=== PATIENT | male | born 1935 | race Caucasian/White ===

== ENCOUNTER 2018-04-14 16:35 | Inpatient (IN) | payer OTHER, MEDICARE ==
[~2018-04-14] VITALS: Ht 167.6 cm; Wt 74.8 kg
--- NOTE | 2018-04-14 16:56 | ED CRITICAL CARE ---
History of Present Illness General Chief Complaint: Cardiopulmonary Resuscitation Stated Complaint: CPR Source: family, EMS Exam Limitations: clinical condition Vital Signs & Intake/Output Vital Signs & Intake/Output Vital Signs Date Time Temp Pulse Resp B/P B/P Pulse O2 O2 Flow FiO2 Mean Ox Delivery Rate 04/14 1751 95.7 77 20 102/63 100 Ventilator 75% 04/14 1724 94 20 108/60 100 Ventilator 100% 04/14 1704 91 70/00 04/14 1650 100 04/14 1645 98 70/00 Allergies Coded Allergies: No Known Allergies (04/14/18) Reconcile Medications Alprazolam 0.25 MG TABLET 1 TAB PO TUESTHRSAT PRN ANXIETY (Reported) Amiodarone (Cordarone) 200 MG TAB 1 TAB PO DAILY HEART (Reported) Apixaban (Eliquis) 2.5 MG TABLET 1 TAB PO BID BLOOD THINNER (Reported) Citalopram Hydrobromide (Celexa) 20 MG TABLET 1 TAB PO DAILY MENTAL HEALTH ( Reported) Epoetin Shahab (Procrit) 20,000 UNIT/ML VIAL 0.35 ML IV TUETHRSAT DIALYSIS ( Reported) Finasteride (Proscar) 5 MG TABLET 1 TAB PO DAILY PROSTATE (Reported) Linagliptin (Tradjenta) 5 MG TABLET 1 TAB PO DAILY DM (Reported) Methyl Salicylate/Menthol (Salonpas Patch) (Unknown Strength) ADH..PATCH 1 PATCH TOP Q8H PAIN (Reported) Metoprolol Tartrate 25 MG TABLET 12.5 MG PO BID HEART/BP (Reported) Oxymetazoline HCl (Afrin) 0.05 % SPRAY 2 SPRAY BELLO BID PRN CONGESTION ( Reported) Rosuvastatin Calcium (Crestor) 20 MG TABLET 1 TAB PO QHS CHOLESTEROL ( Reported) Sennosides/Docusate Sodium (Senna S Tablet) 8.6 MG-50 MG TABLET 2 TAB PO QHS CONSTIPATION (Reported) Sodium Chloride (Saline Nasal [place]) 0.65 % SPRAY 1 SPRAY NASB Q6H PRN NASAL CONGESTION (Reported) Tamsulosin HCl (Flomax) 0.4 MG CAP.ER.24H 1 CAP PO QHS (Reported) Triage Nurses Notes Reviewed? yes HPI: Patient was released from [facility] just yesterday after a CABG and had frequently admissions for fluid overload. Patient started dialysis while in the hospital. Today he was at dialysis. Approximately 2 minutes after being hooked up to the machine the patient went to cardiac arrest. AED was applied and no shock was advised. CPR was initiated. Upon classroom teacher arrival patient was asystole. Patient received epinephrine and calcium and had return of spontaneous circulation for approximately 30 seconds before losing it again. Patient went into a PEA. Patient received 2 more doses of epinephrine. Upon arrival to the emergency department patient remained in a PEA. Patient was given another dose of epinephrine and CPR was continued. Tube placement was confirmed with auscultation. A bedside echocardiogram was performed by myself which showed good cardiac contractility and no pericardial effusion. At that point patient had a pulse. The Combitube was changed over to an ET tube by anesthesia. Past History Travel History Traveled to [place] past 21 day No Medical History Any Pertinent Medical History? see below for history Cardiovascular: CAD Renal: ESRD on HD Surgical History Surgical History: CABG Psychosocial History Tobacco Use: Cognitive Impairment Family History Hx Contributory? No Review of Systems Review of Systems Constitutional: Reports: see HPI. Physical Exam Physical Exam General Appearance: intubated, severe distress Head: atraumatic Eyes: Bilateral: other (FIXED). Neck: supple Respiratory: rhonchi (WITH BVM) Cardiovascular: regular rate/rhythm, normal peripheral pulses, SLIGHT BLEEDING FROM MIDLINE SCAR Gastrointestinal: soft Core Measures ACS in differential dx? Yes CVA/TIA Diagnosis No Sepsis Present: No Sepsis Focused Exam Completed? No Progress Differential Diagnoses I considered the following diagnoses in my evaluation of the patient: [CARDIAC ARREST WITH ROSC,AMI, POST-OP COMPLICATION] Plan of Care: Orders Procedure Date/time Status Nothing by Mouth 04/15 B Active PARTIAL THROMBOPLASTIN TIME 04/14 1828 Active PROTHROMBIN TIME 04/14 1828 Active VRE ACTIVE SURVIELLANCE 04/14 1804 Active ACTIVE SURVEILLANCE NARES 04/14 1800 Active TRC EVALUATION (GEN) 04/14 1751 Active OXYGEN SETUP (GEN) 04/14 1751 Active Pathway - chart 04/14 1751 Active House Staff 04/14 1751 Active CULTURE,URINE 04/14 1751 Active LOWER RESPIRATORY CULTURE 04/14 1751 Active BLOOD CULTURE 04/14 1751 Active Code Status 04/14 1751 Active VENTILATOR PARAMETERS 04/14 1730 Complete Patient Data 04/14 1718 Active Admit to inpatient 04/14 1709 Active VENTILATOR PARAMETERS 04/14 1650 Complete Telemetry/Tailor Helper 04/14 1648 Active TROPONIN LEVEL 04/14 1648 Complete COMPREHENSIVE METABOLIC PANEL 04/14 1648 Complete CBC WITHOUT DIFFERENTIAL 04/14 1648 Complete EKG 04/14 1636 Active ARTERIAL BLOOD GAS (GEN) 04/14 UNK Complete VTE Mechanical Prophylaxis 04/14 UNK Active Vital Signs 04/14 UNK Active Intake & Output 04/14 UNK Active Simon, Insertion/Removal/Asses 04/14 UNK Active Elevate 04/14 UNK Active Current Medications Sig/Blayne Start time Last Medication Dose Stop Time Status Admin Heparin Sodium 5,000 UNIT Q8 04/14 2200 AC (Porcine) Laboratory Tests 04/14/18 1715: pH 7.18 *L, pCO2 35, pO2 381 H, HCO3 13 L, ABG O2 Sat (Measured) 98.0, Carboxyhemoglobin 0.2 L, O2 Concentration % 100%, Respiration Rate 20, O2 Delivery Method ESPRIT VENT, Vent Mode AC, Expiratory Pressure 5, Tidal Volume 500, Phlebotomy Draw Site RIGHT RADIAL 04/14/18 1645: Anion Gap 18 H, Estimated GFR 9 L, BUN/Creatinine Ratio 4.7 L, Glucose 274 H , Calcium 10.1, Total Bilirubin 0.4, AST 69 H, ALT 43, Alkaline Phosphatase 147 H, Troponin I 0.71 *H, Total Protein 5.5 L, Albumin 2.6 L, Globulin 2.9, Albumin/Globulin Ratio 0.9 L, CBC w Diff NO MAN DIFF REQ, RBC 3.35 L, MCV 83.1 , MCH 27.4, MCHC 33.0, RDW 16.4 H, MPV 7.6, Gran % 50.7, Lymphocytes % 44.8, Monocytes % 2.1, Eosinophils % 2.2, Basophils % 0.2, Absolute Granulocytes 7.7 H, Absolute Lymphocytes 6.8 H, Absolute Monocytes 0.3, Absolute Eosinophils 0.3 , Absolute Basophils 0 Microbiology 04/14 1804 GI: Surveillance Culture - ORD 04/14 1800 UPPER RESP: Surveillance Culture - ORD 04/14 1751 URINE ROUT: Urine Culture - ORD 04/14 1751 LOWER RESP: Respiratory Culture - ORD 04/14 175 LOWER RESP: Gram Stain - ORD 04/14 175 BLOOD: Blood Culture - ORD 04/14 1751 BLOOD: Blood Culture - ORD Diagnostic Imaging: Viewed by Me: Radiology Read. Discussed w/RAD: Radiology Read. Initial ED EKG: NSR, RBBB Rhythm Strip: normal sinus rhythm Comments: CALLS HAVE BEEN PLACED TO HIS FUR FINISHER TAILOR WELL HIS CT SURGEON, AWAITING CALL BACKS Departure Departure Disposition: STILL A PATIENT Condition: Critical Clinical Impression Primary Impression: Cardiac arrest Referrals: Patient Has No Primary Care Dr Departure Forms: General Discharge Information Admission Note Spoke With: Dao Mccarty MD Documentation of Exam: Documentation of any treatments & extenuating circumstances including Concerns Regarding Discharge (functional status, medication knowledge or non-compliance, living conditions, etc.) that warrant an admission rather than observation: [ Patient to be admitted to the ICU as he is too unstable to get to [facility] at this time. Patient is currently on a levophed drip. Patient will need close monitoring.] Critical Care Note Critical Care Note Critical Care Time: mins: (120 MIN) Total CPR Time (mins): 15
[2018-04-14 17:15] LABS: ABSOLUTE BASOPHIL COUNT 0 /CUMM (0.0-0.2); ABSOLUTE EOSINOPHIL COUNT 0.3 /CUMM (0.0-0.7); ABSOLUTE GRANULOCYTE CT 7.7 /CUMM (1.4-6.5); ABSOLUTE LYMPH COUNT 6.8 /CUMM (1.2-3.4); ABSOLUTE MONOCYTE COUNT 0.3 /CUMM (0.10-0.60); BASOPHIL % 0.2 % (0.0-2.0); EOSINOPHIL % 2.2 % (0-5); GRANULOCYTE % 50.7 % (42.2-75.2); HEMATOCRIT 27.8 % (42-52); MEAN CORPUSCULAR HGB 27.4 PG (27.0-31.0); MEAN CORPUSCULAR VOLUME 83.1 FL (80.0-94.0); MEAN PLATELET VOLUME 7.6 FL (7.4-10.4); RBC DISTRIBUTION WIDTH 16.4 % (11.5-14.5); RED BLOOD CELL CT 3.35 /CUMM (4.70-6.10); WHITE BLOOD CELL COUNT 15.1 /CUMM (4.8-10.8)
[2018-04-14 17:44] LABS: PLATELET COUNT 34 /CUMM (130-400)
--- NOTE | 2018-04-14 17:47 | History & Physical ---
Marcelo ANAND,Vikas 04/14/18 8985: General Information and HPI MD Statement: I have seen and personally examined BRIAN KNOX and documented this H&P. The patient is a 82 year old M who was BIBA with ongoing CPR. Source of Information: family, EMS Exam Limitations: clinical condition, post CPR History of Present Illness: 82-year-old male with past medical history of hypertension, coronary artery disease status post CABG within a month, diastolic CHF, A. fib, peripheral vascular disease, diabetes mellitus, ESRD on hemodialysis, hyperlipidemia, depression, anxiety, subdural hematoma with craniotomy in 1989, and a recent frequent hospitalization at [facility] for bilateral pleural effusion with thoracentesis, splenic laceration after fall managed conservatively, and a metabolic encephalopathic attributed to UTI, who was at [facility] for rehab, underwent a cardiac arrest while starting hemodialysis session today and was brought in an ambulance by the EMS with CPR continuing. He received a total of just above 40 min of CPR per records and received four doses of Epinephrine then. Recent history, has been frequent hospitalizations for multiple reasons, open heart surgery within a month, a fall on ?04/02/18 resulting in splenic laceration managed conservatively, and bilateral pleural effusion status post thoracotomy with 1 L and later 2 L of fluids drained. More medical records needs to be obtained from [facility], [place]. Allergies/Medications Allergies: Coded Allergies: No Known Allergies (04/14/18) Compliance With Home Meds: GOOD Past History Travel History Traveled to [place] past 21 day No Medical History Cardiovascular: AFIB, CAD, diastolic CHF, hypertension, hyperlipidemia, PVD, CABG Renal: ESRD on HD Psychiatric: anxiety, depression Surgical History Surgical History: CABG ([address] [facility]) Past Family/Social History Psychosocial History Where do you live? [facility] ([facility]porarily after hospital [place]) Primary Language: Chilean Smoking Status: Unknown If Ever Smoked ETOH Use: denies use Illicit Drug Use: denies illicit drug use Living Will? yes (no copies at hand though) Power of Buffing And Sueding Machine Operator/HCP? yes (Eldest daughter per family) Functional Ability ADLs Unknown: dressing, eating, toileting, bathing. Ambulation: unknown IADLs Unknown: shopping, housework, finances, food prep, telephone, transportation, medication admin. Review of Systems Review of Systems Constitutional: Reports: no symptoms. EENTM: Reports: no symptoms. Cardiovascular: Reports: no symptoms. Respiratory: Reports: short of breath (as reported by pt to family ). GI: Reports: no symptoms. Genitourinary: Reports: no symptoms. Musculoskeletal: Reports: no symptoms. Skin: Reports: no symptoms. Neurological/Psychological: Reports: no symptoms. Hematologic/Endocrine: Reports: no symptoms. All Other Systems: Reviewed and Negative (per family, as pt cannot speak) Exam & Diagnostic Data Last 24 Hrs of Vital Signs/I&O Vital Signs Date Time Temp Pulse Resp B/P B/P Pulse O2 O2 Flow FiO2 Mean Ox Delivery Rate 04/14 1724 94 20 108/60 100 Ventilator 100% 04/14 1704 91 70/00 04/14 1650 100 04/14 1645 98 70/ Physical Exam General Appearance intubated Skin chest wall has median longitudinal scar from recent surgery with oozing blood and a rema of compression device Skin Temp/Moisture Exam: Cool/Dry Sepsis Skin Exam (color): Pale HEENT Atraumatic, PERRLA, EOMI, Mucous Membr. moist/pink Neck No JVD Lymphatic Cervical nl Cardiovascular Normal S1, Normal S2 Lungs ventilated breath sounds b/l Abdomen Soft, distended, slow bowel sounds Neurological cannot assess fully due to pt's condition, b/l pupillary reflex intact Extremities No Clubbing, cyanosis noted in b/l hands and feet, left hand extended position, b/l edema 1+ Vascular poor pulse all over Sepsis Peripheral Pulse Location: Radial Sepsis Peripheral Pulse Exam: Weak Sepsis Cap Refill Exam: >2 sec Last 24 Hrs of Labs/Hany: Laboratory Tests 04/14/18 1715: pH 7.18 *L, pCO2 35, pO2 381 H, HCO3 13 L, ABG O2 Sat (Measured) 98.0, Carboxyhemoglobin 0.2 L, O2 Concentration % 100%, Respiration Rate 20, O2 Delivery Method ESPRIT VENT, Vent Mode AC, Expiratory Pressure 5, Tidal Volume 500, Phlebotomy Draw Site RIGHT RADIAL 04/14/18 1645: Sodium Pending, Potassium Pending, Chloride Pending, Carbon Dioxide Pending, Anion Gap Pending, BUN Pending, Creatinine Pending, BUN/Creatinine Ratio Pending , Glucose Pending, Calcium Pending, Total Bilirubin Pending, AST Pending, ALT Pending, Alkaline Phosphatase Pending, Troponin I Pending, Total Protein Pending , Albumin Pending, Globulin Pending, Albumin/Globulin Ratio Pending, CBC w Diff NO MAN DIFF REQ, RBC 3.35 L, MCV 83.1, MCH 27.4, MCHC 33.0, RDW 16.4 H, MPV 7.6, Gran % 50.7, Lymphocytes % 44.8, Monocytes % 2.1, Eosinophils % 2.2, Basophils % 0.2, Absolute Granulocytes 7.7 H, Absolute Lymphocytes 6.8 H, Absolute Monocytes 0.3, Absolute Eosinophils 0.3, Absolute Basophils 0 Microbiology 04/14 1751 URINE ROUT: Urine Culture - ORD 04/14 1751 LOWER RESP: Respiratory Culture - ORD 04/14 1751 LOWER RESP: Gram Stain - ORD 04/14 1751 BLOOD: Blood Culture - ORD 04/14 1751 BLOOD: Blood Culture - ORD Diagnostic Data EKG Results sinus rhythm with RBBB, no ST elevation, and ST depression noted in V3-V5 CXR Results pending Other Results pending Assessment/Plan Assessment: 82-year-old male with past medical history of hypertension, coronary artery disease status post CABG within a month, diastolic CHF, A. fib, peripheral vascular disease, diabetes mellitus, ESRD on hemodialysis, hyperlipidemia, depression, anxiety, subdural hematoma with craniotomy in 1989, and a recent frequent hospitalization at [facility] for bilateral pleural effusion with thoracentesis, splenic laceration after fall managed conservatively, and a metabolic encephalopathic attributed to UTI, who was at [facility] for rehab, underwent a cardiac arrest while starting hemodialysis session today and was brought in an ambulance by the EMS with CPR continuing. He received a total of just above 40 min of CPR per records and received four doses of Epinephrine then. CT now shows no PE, no stroke or herniation, or acute abdominal features. Patient was transferred to the ICU and currently is being managed here for the following issues: RESPIRATORY #Acute respiratory failure, post cardiopulmonary arrest Patient is currently intubated, will continue that for now. #Septic shock, Bilateral pulmonary pneumonia Initially patient was covered with IV Unasyn for possible aspiration pneumonia after a cardiac resuscitation, but his CT chest showed bilateral pulmonary consolidation, suspicion for infiltration/pneumonia, thus is being covered with IV vancomycin and IV Fortaz. Regarding the criteria for sepsis, the patient presented with cardiopulmonary arrest, thus the definition probably doesn't apply here. INFECTIVE DISEASE As mentioned above for pneumonia CARDIOLOGY Patient is post cardiopulmonary arrest, and his currently on IV Levophed at 20ug /kg/min. The next pressors would be IV vasopressin, and IV Maikel-Synephrine respectively. Preoperative holding rest of patient's home cardiac medications currently. HEMATOLOGY #Leukocytosis, possibly due to pneumonia or reactionary, and is on antibiotics now #Anemia, likely chronic, related to renal condition #Thrombocytopenia, initially reported as 34, possibly false reading but no prior records at [facility] currently. Will repeat and follow up. METABOLIC #JUSTEN on CKD Initial troponin was 5.9, and the patient did not receive any hemodialysis today. If his condition allows, and if the port is working (after CPR) then we would dialyze him tomorrow. Patient had to undergo contrast study to rule out PE today and that was discussed with the patient's refining equipment operator Dr Merritt as well. ALIMENTARY No issues currently. NPO. NEPHROLOGY ESRD, will undergo dialysis tomorrow per Dr Merritt. He did receive contrast for CTA today. IV Fluids to continue. NEUROLOGY Full assessment not possible given patient's condition, but his bilateral pupils are equal and reactive to light. GOALS OF CARE Patient's power of insurance defense attorney is his eldest daughter, but is most family is around. I had an extensive conversation with the patient's POA as well as the rest of the present family members, and after explaining current situation, prognosis, including possible complications of CPR, imaging showing pneumonia, and him requiring IV pressors, the POA mention that the lesion would not have wanted another round of CPR if his conditions were to worsen. Thus the patient' s CODE STATUS was changed to DO NOT RESUSCITATE as the patient is already intubated. Also the family mentioned that she would not like to be kept connected to a ventilator without meaningful quality of life, or after his brain was done. We spoke about hypothermia protocol as well which is indicated after CPR to preserve renal function as much as possible, but is also not usually given for patient's who have DNR as the code status. The POA was well informed about the hypothermia and then decided NOT to proceed with hypothermia protocol. POA made all the decisions after consultation with rest of her family members who were also explained about the patient's condition together. More medical records needs to be obtained from [place], [place]. DVT ppx: SQ Heparin Code status: DNR, as mentioned above. Diet: NPO As Ranked By This Provider Problem List: 1. Cardiac arrest Core Measures/Misc (07/18) Acute Coronary Syndrome ACS Diagnosis: No Congestive Heart Failure Congestive Heart Failure Diagnosis No Cerebrovascular Accident CVA/TIA Diagnosis: No VTE (View Protocol) VTE Risk Factors Age>40 No Mechanical VTE Prophylaxis d/t N/A MechProphylax Ordered No VTE Pharm Prophylaxis d/t NA PharmProphylax ordered Sepsis (View protocol) Sepsis Present: Yes (by definition) If YES complete Sepsis Event Note If YES complete Sepsis Event Note Dao Mccarty MD 04/14/180: General Information and HPI Allergies/Medications Home Med list Alprazolam 0.25 MG TABLET 1 TAB PO TUESTHRSAT PRN ANXIETY (Reported) Amiodarone (Cordarone) 200 MG TAB 1 TAB PO DAILY HEART (Reported) Apixaban (Eliquis) 2.5 MG TABLET 1 TAB PO BID BLOOD THINNER (Reported) Citalopram Hydrobromide (Celexa) 20 MG TABLET 1 TAB PO DAILY MENTAL HEALTH ( Reported) Epoetin Shahab (Procrit) 20,000 UNIT/ML VIAL 0.35 ML IV TUETHRSAT DIALYSIS ( Reported) Finasteride (Proscar) 5 MG TABLET 1 TAB PO DAILY PROSTATE (Reported) Linagliptin (Tradjenta) 5 MG TABLET 1 TAB PO DAILY DM (Reported) Methyl Salicylate/Menthol (Salonpas Patch) (Unknown Strength) ADH..PATCH 1 PATCH TOP Q8H PAIN (Reported) Metoprolol Tartrate 25 MG TABLET 12.5 MG PO BID HEART/BP (Reported) Oxymetazoline HCl (Afrin) 0.05 % SPRAY 2 SPRAY BELLO BID PRN CONGESTION ( Reported) Rosuvastatin Calcium (Crestor) 20 MG TABLET 1 TAB PO QHS CHOLESTEROL ( Reported) Sennosides/Docusate Sodium (Senna S Tablet) 8.6 MG-50 MG TABLET 2 TAB PO QHS CONSTIPATION (Reported) Sodium Chloride (Saline Nasal [place]) 0.65 % SPRAY 1 SPRAY NASB Q6H PRN NASAL CONGESTION (Reported) Tamsulosin HCl (Flomax) 0.4 MG CAP.ER.24H 1 CAP PO QHS (Reported) Core Measures/Misc (07/18) Sepsis (View protocol) If YES complete Sepsis Event Note If YES complete Sepsis Event Note Attending MD Review Statement Attending Statement Attending MD Statement: examined this patient, discuss w/resident/PA/AIRCRAFT STRUCTURAL REPAIRER, agreed w/resident/PA/AIRCRAFT STRUCTURAL REPAIRER, discussed with family, reviewed EMR data (avail), discussed with nursing, discussed with case mgmt, reviewed images, amended to note Attending Assessment/Plan: Impression 82 year old man * s/p cardiac arrest - asystole, then PEA Plan Respiratory -mechanical ventilation -monitor abgs, cxrs -check CTA ID -monitor for now -watch wbc, fevers CVS -cardiology consultation -f/u troponins -ECHO -alert ct surgeon at [facility] of admission given recent surgery Heme -monitor coags, cbcs Metabolic -ins/outs -creatinine -electrolytes Alimentary -NPO Neuro -ct head DVT prophylaxis at all times TTS 70 min
[2018-04-14] MEDS ORDERED: CELEXA20 M1 PO (17:57)
[2018-04-14] MEDS ORDERED: AMIODARONE HCL200 M1 PO (17:57)
--- NOTE | 2018-04-14 17:57 | RADIOLOGY REPORT ---
EXAMINATION: XR PORTABLE CHEST CLINICAL INFORMATION: Evaluate status post cardiac arrest. COMPARISON: No relevant prior imaging. TECHNIQUE: Portable frontal view of the chest was obtained. FINDINGS: The tip of the endotracheal tube is located 2.8 cm above the angella. Enteric tube extends below diaphragm. The tip of a right internal jugular vein catheter is located within the right atrium. Superficial cardiac leads overlie the chest. There is mild interstitial edema. No overt airspace disease. Trace effusions. The cardiac silhouette and upper mediastinal contours are unremarkable. No acute osseous finding. Chronic changes of a median sternotomy are noted. IMPRESSION: Mild interstitial pulmonary edema and trace effusions. No overt airspace disease. The tip of the endotracheal tube terminates 2.8 cm above the angella.
[2018-04-14] MEDS ORDERED: SENNA S TABLET1 EACH PO (17:58)
[2018-04-14] MEDS ORDERED: ELIQUIS2.5 M1 PO (17:58)
[2018-04-14] MEDS ORDERED: PROSCAR5 M1 PO (17:58)
[2018-04-14] MEDS ORDERED: SALONPAS PATCH1 EAC1 TOP (17:59)
[2018-04-14] MEDS ORDERED: TRADJENTA5 M1 PO (17:59)
[2018-04-14] MEDS ORDERED: CRESTOR20 M2 PO (17:59)
[2018-04-14] MEDS ORDERED: FLOMAX0.4 M1 PO (17:59)
[2018-04-14] MEDS ORDERED: AFRIN30 ML NAS (18:00)
[2018-04-14] MEDS ORDERED: METOPROLOL TART25 M1 PO (18:00)
[2018-04-14] MEDS ORDERED: SALINE NASAL SP30 ML NASB (18:01)
[2018-04-14] MEDS ORDERED: ALPRAZOLAM0.25 M1 PO (18:01)
[2018-04-14] MEDS ORDERED: PROCRIT20000 UNIT IV (18:02)
--- NOTE | 2018-04-14 18:11 | Admission Certification ---
Admission Certification Certification Statement - As attending physician, I certify that at the time of - admission, based on clinical presentation, severity of - symptoms, need for further diagnostic testing and - therapeutic interventions, and risk of adverse outcomes - without in-hospital treatment, in my clinical assessment, - this patient requires an acute hospital stay for a minimum - of two nights or longer. I have also considered psychsocial - factors such as support system, advanced age, financial - issues, cognitive issues, and failed out-patient treatments, - past re-admission history, safety of patient, and lack of - compliance as applicable. Specific rationale supporting this admission is: s/p cardiac arrest - asystole, then PEA intubated ICU admission
--- NOTE | 2018-04-14 21:13 | Proc Note Internal Medicine ---
Medicine Procedure Procedure Date: 04/14/18 Medical Procedure(s): central venous cath place (Rt femoral vein) Pre-Operative Diagnosis: Post cardiopulmonary arrest, requiring IV access for IV pressors Post-Operative Diagnosis: Same as above Estimated Blood Loss: less than 50ml Anesthesia: local anesthesia Procedure Findings: Under all aseptic conditions, right femoral central line was placed successfully. All three lumen were check for flow pre- and post-procedure as well.
--- NOTE | 2018-04-14 21:37 | CT SCAN REPORT ---
EXAMINATION: CT HEAD WITHOUT CONTRAST CLINICAL INFORMATION: 82-year-old male with the decerebrate posturing. COMPARISON: None TECHNIQUE: Contiguous axial imaging was performed from the skull base to vertex without intravenous administration of contrast. DLP: 622 mGy-cm FINDINGS: No intracranial hemorrhage, extra-axial fluid collection, mass or midline shift. Mild atrophy of cerebral hemispheres with symmetric prominence of sulci. The enlargement of the lateral and third ventricles appears to be out of proportion to the cerebral volume loss; this suggests possibility of normal pressure hydrocephalus or chronic, partial aqueductal stenosis. The shaffer-white matter differentiation is well preserved. No acute findings within the posterior fossa. Atherosclerotic calcification of cavernous carotid arteries. Bilateral frontal craniotomy defects are noted. The visualized paranasal sinuses, mastoid air cells and middle ear cavities are well aerated. Lens has been extracted from the right globe. No acute intraorbital pathology. The temporomandibular joints are normal. IMPRESSION: 1. No evidence of intracranial hemorrhage or acute infarction. 2. Mild atrophy of cerebral hemispheres. The prominence of the lateral and third ventricles appears to be out of proportion to the cerebral volume loss; this suggests possibility of normal pressure hydrocephalus.
--- NOTE | 2018-04-14 21:49 | CT SCAN REPORT ---
EXAMINATION: CTA CHEST, ABDOMEN AND PELVIS CLINICAL INFORMATION: Post cardiac arrest. COMPARISON: Chest portable 04/14/2018. TECHNIQUE: Following intravenous administration of 100 mL Optiray 320, 5 mm thin axial CTA chest, followed by phone within axial images of abdomen pelvis were obtained. DLP [id number] FINDINGS: CHEST: There is bilateral small to moderate pleural effusions with underlying bilateral lower lobe dense consolidation/infiltrates. In addition there is patchy airspace opacification right upper lobe and right middle lobe. Question multiple lung nodules versus infiltrates. The left upper lung is clear. There is good opacification of pulmonary artery and its branches without any intraluminal filling defect or narrowing. The thoracic aorta is of normal caliber without aneurysm or dissection. There are postsurgical susan in the anterior mediastinum likely from previous CABG. Heart size is borderline enlarged. A small pericardial effusion is seen. The endotracheal tube is approximately centimeters above the angella. A right central catheter tip is in right atrium. Nasogastric tube tip is in stomach. The axilla and the chest wall appears unremarkable. There are median sternotomy sutures and mediastinal susan from previous CABG. ABDOMEN AND PELVIS: Visualized liver, pancreas and bilateral adrenal glands unremarkable. The spleen is normal size. There is a hypodense area along the tip of the spleen likely small infarct The gallbladder has been surgically removed. Both kidneys are normal size, shape and position. No evidence of radiopaque calculi or hydronephrosis. There is a nasogastric tube tip in the stomach. The stomach is nondistended. The small bowel loops are unremarkable. There is scattered minimal stool and fluid seen in the colon without distention. There is no free fluid of free air. A Simon's catheter is seen in the bladder. The prostate gland is mildly enlarged. There is no free fluid. Bone windows reveal no lytic or sclerotic process. There is mild degenerative vacuum disc phenomena L3-L4, L4-L5 and L5/S1 disc levels. IMPRESSION: No evidence of PE. No evidence of aortic dissection or aneurysm. Bilateral small pleural effusions with large bilateral lower lobe consolidations. In addition there are patchy ill-defined opacities in the right lung question infiltrate versus pulmonary nodules. Suspect infarct the tip of spleen. Differential 9 is includes hemangioma or splenic contusion. No perisplenic or perihepatic hematoma seen. A follow-up ultrasound or CT can be performed Right central catheter, endotracheal tube, nasogastric tube and Simon's catheter are in satisfactory position.
[2018-04-14 22:00] VITALS: BP 86/00
[2018-04-14 22:55] LABS: ABSOLUTE BASOPHIL COUNT 0 /CUMM (0.0-0.2); ABSOLUTE EOSINOPHIL COUNT 0.1 /CUMM (0.0-0.7); ABSOLUTE GRANULOCYTE CT 20.5 /CUMM (1.4-6.5); ABSOLUTE LYMPH COUNT 1.2 /CUMM (1.2-3.4); ABSOLUTE MONOCYTE COUNT 1.5 /CUMM (0.10-0.60); BASOPHIL % 0.2 % (0.0-2.0); EOSINOPHIL % 0.3 % (0-5); HEMATOCRIT 25.9 % (42-52); MEAN CORPUSCULAR HGB 26.8 PG (27.0-31.0); MEAN CORPUSCULAR HGB CONC 32.5 G/DL (33.0-37.0); MEAN CORPUSCULAR VOLUME 82.3 FL (80.0-94.0); MEAN PLATELET VOLUME 6.5 FL (7.4-10.4); RBC DISTRIBUTION WIDTH 16.4 % (11.5-14.5); RED BLOOD CELL CT 3.15 /CUMM (4.70-6.10)
[2018-04-14 23:00] LABS: GRANULOCYTE % 87.9 % (42.2-75.2)
[2018-04-14 23:01] LABS: PLATELET COUNT 103 /CUMM (130-400); WHITE BLOOD CELL COUNT 23.4 /CUMM (4.8-10.8)
[2018-04-14 23:05] LABS: PT 19.4 SEC (9.4-12.5); PTT 29 SEC (25-37)
--- NOTE | 2018-04-15 00:12 | Sepsis Event Note ---
Sepsis Event Note Severe Sepsis Severe Sepsis Present: Yes Septic Shock Septic Shock Present: Yes Event Note Event Note: Patient on presentation had some current pulmonary arrest and was undergoing CPR , thus tachycardia/hypopnea or hyperthermia/tachypnea does not apply here. He had leukocytosis, and later a CAT scan of the chest showed bilateral consolidation, in the last perspective by antibiotics were started to cover not only for aspiration which was likely, but to cover for other resistant organisms that can cause pneumonia. He also has a recent h/o b/l pleural effusion. No other obvious source of infection noted. Lactic acid test added on. Sepsis Focused Exam Sepsis Cardiac Exam: Bradycardia Sepsis Resp Exam: decreased breath sound Sepsis Cap Refill Exam: >2 sec (all over) Sepsis Peripheral Pulse Exam: Weak Sepsis Peripheral Pulse Location: Radial Sepsis Skin Exam (color): Cyanotic, Pale Skin Temp/Moisture Exam: Cool/Dry
[2018-04-15 03:29] LABS: ABSOLUTE BASOPHIL COUNT 0 /CUMM (0.0-0.2); ABSOLUTE EOSINOPHIL COUNT 0 /CUMM (0.0-0.7); ABSOLUTE GRANULOCYTE CT 18.4 /CUMM (1.4-6.5); ABSOLUTE LYMPH COUNT 0.8 /CUMM (1.2-3.4); ABSOLUTE MONOCYTE COUNT 0.8 /CUMM (0.10-0.60); BASOPHIL % 0 % (0.0-2.0); EOSINOPHIL % 0 % (0-5); GRANULOCYTE % 91.9 % (42.2-75.2); HEMATOCRIT 23.9 % (42-52); MEAN CORPUSCULAR HGB 27.3 PG (27.0-31.0); MEAN CORPUSCULAR HGB CONC 33.4 G/DL (33.0-37.0); MEAN CORPUSCULAR VOLUME 81.7 FL (80.0-94.0); PLATELET COUNT 91 /CUMM (130-400); RBC DISTRIBUTION WIDTH 16.3 % (11.5-14.5); RED BLOOD CELL CT 2.92 /CUMM (4.70-6.10)
[2018-04-15 08:00] VITALS: BP 102/50
--- NOTE | 2018-04-15 10:01 | PN- Resident CRCU ---
Nava Vieyra MD 04/15/18 1001: Subjective HPI/CRCU Issues: Patient is seen and examined at the bedside. He is on the ventilator, his eyes were up ruling, pupillary reflex was intact, on the painful stimulation he was decerebrating. He had an episode of twitching movement of the face and the eyes ? Seizures He had a family meeting that we described the prognosis and mortality. Family is aware that the prognosis very poor. 24 Hour Events: Vital signs -temperature 100.8, pulse 87, first-degree atrioventricular block, respiratory 29, blood pressure 127/61 blood pressure support, ventilator-assist control/respiratory 20, tidal volume 500, FiO2 35, PEEP 5, SPO2 100%. Objective Vital Signs & I&O Last 8 Hrs of Vitals and I&O: Intake & Output 04/15 1600 Intake Total 663 Output Total 102 Balance 561 Intake, IV 663 Output, 100 Gastric Drainage Output, Urine 2 Patient 74.843 kg Weight Exam General Appearance: no apparent distress, intubated Respiratory: lungs clear Cardiovascular: regular rate/rhythm, chest there is central scar, bleeding. There was a dialysis port in right upper part of chest. Gastrointestinal: soft, non-tender Extremities: normal inspection, bilateral lower extremeties were cold Cranial Nerves: On Neurological exam - Patient was having decerebrate posturing, Seizures, right sided twitching of eyes, and face, pupils were round and reactive. Impression/Plan Impression/Problem List Impression: 82-year-old male with past medical history of hypertension, coronary artery disease status post CABG within a month, diastolic CHF, A. fib, peripheral vascular disease, diabetes mellitus, ESRD on hemodialysis, hyperlipidemia, depression, anxiety, subdural hematoma with craniotomy in 1989, and a recent frequent hospitalization at [facility] for bilateral pleural effusion with thoracentesis, splenic laceration after fall managed conservatively, and a metabolic encephalopathic attributed to UTI, who was at [facility] for rehab, underwent a cardiac arrest while starting hemodialysis session today and was brought in an ambulance by the EMS with CPR continuing. He received a total of just above 40 min of CPR per records and received four doses of Epinephrine then. Assessment and plan - Overnight patient was on ventilator and currently off the pressor support. He was decerebrating in between and had an episode of seizure. It seems that he had severe hypoxic encephalopathy. He updated the family and had a discussion regarding goals of care, prognosis and mortality. There is still in the process of discussion and deciding within the family member. Plan - Acute hypoxic encephalopathy secondary to cardiopulmonary resuscitation, hypotension complicated by focal seizures - * We placed neurologic consult * We will follow echocardiogram, EEG * Neuro check every 4 * Continue ventilator * Update the family about events * Strict intake output charting Status post bypass and CPR * Discussed with the stenotypist Clifton Rai MD advised for echocardiogram Chronic kidney disease on dialysis * Family refused further dialysis. * Dr. Goodwin had discussion with the family, he does not want any active intervention including dialysis. Code Status - DNR/DNI Diet - NPO DVT Prophylaxis - ALPS Later family decided that they will go for comfort care. Will change the CODE STATUS to comfort care and extubated patient. Patient is under comfort measures. Problem List: 1. Cardiac arrest Pain Ratin Tomorrow's Labs & Rationales: n/a Plan DVT/Prophylaxis: dannielle Mccarty MD,Dao 04/15/18 1004: Objective Current Medications: Current Medications Sig/Blayne Start time Last Medication Dose Route Stop Time Status Admin Acetaminophen 500 MG Q6-PRN PRN 04/15 1430 DC 04/15 IV 1421 Ceftazidime 1,000 MG Q24H 04/15 0000 DC 04/15 IV 0025 Glycopyrrolate 200 MCG Q2 PRN 04/15 1815 DCD 04/15 IV 1827 Heparin Sodium 5,000 UNIT Q8 04/14 2200 DC (Porcine) SC Levetiracetam 500 MG Q24 04/16 0900 CAN N/A 1 UNIT IV Levetiracetam 1,000 MG STAT STA 04/15 1129 DC 04/15 N/A 1 UNIT IV 04/15 1143 1211 Lorazepam 2 MG Q2 HRS NEEDED PRN 04/15 1730 DCD 04/15 IV 1729 Morphine Sulfate See Dose .[Q 20 MIN] PRN 04/15 1915 DCD Insts (1) IV Morphine Sulfate 4 MG .[Q 20 MIN] PRN 15 1845 DC 04/15 IV 1857 Morphine Sulfate 4 MG .[Q 20 MIN] PRN 04/15 1830 DC / IV 1838 Morphine Sulfate 4 MG ONCE ONE 04/15 1815 DC 04/15 IV 04/15 1816 1815 Morphine Sulfate 4 MG ONCE ONE 04/15 1745 DC / IV 04/15 1746 1743 Morphine Sulfate 4 MG ONCE ONE 04/15 1730 DC 04/15 IV 04/15 1731 1723 Morphine Sulfate 100 MG Q24H 04/15 1630 CAN N/A 1 UNIT IV Morphine Sulfate 90 MG Q24H 04/15 1630 DCD /15 N/A 1 UNIT IV 1735 Morphine Sulfate 6 MG ONCE ONE 04/15 1600 DC / IV 04/15 1601 1608 Morphine Sulfate 100 MG Q24H 04/15 1600 DC Dextrose/Water 100 ML IV Norepinephrine 4 MG Q3H 04/15 0045 DC 04/15 Dextrose/Water 250 ML IV 0115 Pantoprazole Sodium 40 MG DAILY 04/14 2345 DC 04/15 IV 0843 Scopolamine HBr 1 PAT Q72H 04/15 1830 DCD TOP Sodium Chloride 1,000 ML Q10H 04/15 0115 DC 04/15 IV 1531 Dose Instructions: (1)Morphine Sulfate: DOSE PER DRIP PROTOCOL Attending MD Review Statement Attending Sign Off Attending Cosign Statement: I have: examined this patient, reviewed al EMR data, personally reviewd images, discussd w/resident/PA/[employer] BASKET MAKER, discussed mgmt plan w/gerald, discussed mgmt plan w/CM, discussed mgmt plan w/pt, agreed w/resident/PA/WIRE BASKET MAKER, amended to note. Other Findings: Impression 82 year old man * s/p cardiac arrest - asystole, then PEA Plan Respiratory -mechanical ventilation -monitor abgs, cxrs ID -broad spectrum abx -watch wbc, fevers CVS -cardiology consultation -f/u troponins -ECHO -discussed with [employer] for ct surgeon at [facility] of admission given recent surgery Heme -monitor coags, cbcs Metabolic -ins/outs -creatinine -electrolytes Alimentary -NPO Neuro -EEG -neurology consultation DVT prophylaxis at all times TTS 40 min DNR/DNI d/w family very poor prognosis
--- NOTE | 2018-04-15 10:50 | Cons- Cardiology ---
General Information and HPI Consulting Request Date of Consult: 04/15/18 Requested By: Dao Mccarty MD Reason for Consult: Cardiopulmonary arrest Source of Information: family, old records, EMS History of Present Illness: The patient was intubated at the time of this consultation and the majority of the HPI is obtained from the medical record and discussions with his other physicians. This is an 82-year-old male with a past medical history of coronary artery disease with recent three-vessel CABG (BANKS, SVGx2) at [facility], end -stage renal disease on dialysis, diastolic CHF, recently diagnosed atrial fibrillation now on Eliquis, hypertension, hyperlipidemia, and diabetes mellitus. Patient was recently discharged from [facility] and was undergoing outpatient dialysis when per report he lost consciousness and was found to be pulseless. He did undergo CPR and received out of hospital epinephrine with eventual return of spontaneous regulation. He was transiently on pressors which were subsequently discontinued as his blood pressure improved. While he had had recurrent hospitalizations per reports he had not been complaining of worsening shortness of breath, chest pain, subjective fever, or worsening cough. Allergies/Medications Allergies: Coded Allergies: No Known Allergies (04/14/18) Home Med List: Alprazolam 0.25 MG TABLET 1 TAB PO TUESTHRSAT PRN ANXIETY (Reported) Amiodarone (Cordarone) 200 MG TAB 1 TAB PO DAILY HEART (Reported) Apixaban (Eliquis) 2.5 MG TABLET 1 TAB PO BID BLOOD THINNER (Reported) Citalopram Hydrobromide (Celexa) 20 MG TABLET 1 TAB PO DAILY MENTAL HEALTH ( Reported) Epoetin Shahab (Procrit) 20,000 UNIT/ML VIAL 0.35 ML IV TUETHRSAT DIALYSIS ( Reported) Finasteride (Proscar) 5 MG TABLET 1 TAB PO DAILY PROSTATE (Reported) Linagliptin (Tradjenta) 5 MG TABLET 1 TAB PO DAILY DM (Reported) Methyl Salicylate/Menthol (Salonpas Patch) (Unknown Strength) ADH..PATCH 1 PATCH TOP Q8H PAIN (Reported) Metoprolol Tartrate 25 MG TABLET 12.5 MG PO BID HEART/BP (Reported) Oxymetazoline HCl (Afrin) 0.05 % SPRAY 2 SPRAY BELLO BID PRN CONGESTION ( Reported) Rosuvastatin Calcium (Crestor) 20 MG TABLET 1 TAB PO QHS CHOLESTEROL ( Reported) Sennosides/Docusate Sodium (Senna S Tablet) 8.6 MG-50 MG TABLET 2 TAB PO QHS CONSTIPATION (Reported) Sodium Chloride (Saline Nasal Allen) 0.65 % SPRAY 1 SPRAY NASB Q6H PRN NASAL CONGESTION (Reported) Tamsulosin HCl (Flomax) 0.4 MG CAP.ER.24H 1 CAP PO QHS (Reported) Current Medications: Current Medications Sig/Blayne Start time Last Medication Dose Route Stop Time Status Admin Acetaminophen 1,000 MG ONCE ONE 04/15 0630 DC 04/15 N/A 1 UNIT IV 04/15 0644 0623 Ampicillin Sodium/ 3,000 MG Q24H 04/14 2200 DC 04/14 Sulbactam Sodium IV 2230 Sodium Chloride 100 ML Ceftazidime 1,000 MG Q24H 04/15 0000 AC 04/15 IV 0025 Epinephrine 1 MG ONCE ONE 04/14 1700 DC 04/14 IV 04/14 1701 1633 Fentanyl Citrate 50 MCG ONCE ONE 04/15 0615 DC 04/15 IV 04/15 0616 0623 Heparin Sodium 5,000 UNIT Q8 04/14 2200 AC (Porcine) SC Norepinephrine 4 MG Q3H 04/15 0045 AC 04/15 Dextrose/Water 250 ML IV 0115 Norepinephrine 4 MG Q24H 04/14 2300 DC 04/14 Dextrose/Water 250 ML IV 04/15 0044 2301 Norepinephrine 4 MG .STK-MED ONE 04/14 2134 DC IV 04/14 2135 Norepinephrine 4 MG ONCE ONE 04/14 1700 DC 04/14 Sodium Chloride 250 ML IV 04/14 1701 1645 Norepinephrine 0 .STK-MED ONE 04/14 1643 DC IV Pantoprazole Sodium 40 MG DAILY 04/14 2345 AC 04/15 IV 0843 Sodium Chloride 1,000 ML Q10H 04/15 0115 AC 04/15 IV 0117 Vancomycin HCl 1,000 MG ONCE ONE 04/14 2315 DC 04/15 Sodium Chloride 250 ML IV 04/15 0014 0025 Vasopressin 40 UNITS .STK-MED ONE 04/14 2211 DC IM 04/14 2212 Review of Systems Review of Systems: Unable to obtain as the patient is currently intubated Past History Travel History Traveled to [place] past 21 day No Medical History Blood Transfusion Hx: Yes EENT: NONE Cardiovascular: AFIB, CAD, diastolic CHF, hypertension, hyperlipidemia, PVD, CABG Respiratory: NONE Gastrointestinal: NONE Hepatic: NONE Renal: ESRD on HD Musculoskeletal: NONE Psychiatric: anxiety, depression Endocrine: diabetes Blood Disorders: NONE Cancer(s): NONE INTEGRITY ENGINEER/Reproductive: NONE Surgical History Surgical History: CABG (2 WEEKS AGO AT [facility]) Psychosocial History [facility] You [facility] ([facility] after hospital DC) Services at Home: Nursing, Physical Therapy Primary Language: Chinese Smoking Status: Unknown If Ever Smoked ETOH Use: denies use Illicit Drug Use: denies illicit drug use Living Will? yes (no copies at hand though) Power of Dragline Engineer/HCP? yes (Eldest daughter per family) Functional Ability ADLs Unknown: dressing, eating, toileting, bathing. Ambulation: unknown IADLs Unknown: shopping, housework, finances, food prep, telephone, transportation, medication admin. Exam & Diagnostic Data Vital Signs and I&O Vital Signs Date Time Temp Pulse Resp B/P B/P Pulse O2 O2 Flow FiO2 Mean Ox Delivery Rate 04/15 0922 40 04/15 0800 99.9 78 22 102/50 100 Ventilator 60% 04/15 0800 100 Ventilator 60% 04/15 0752 100.0 04/15 0623 100.4 04/15 0600 60 04/15 0556 65 04/15 0400 100 Ventilator 65% 04/15 0324 65 04/15 0320 70 04/15 0115 84 113/56 04/15 0034 70 04/15 0026 75 04/15 0000 100 Ventilator 75% 04/14 2301 85 85/60 04/14 2230 75 04/14 2200 94.2 80 20 86/00 100 Ventilator 75% 04/14 2115 95 Ventilator 75% 04/14 2014 89.8 83 20 128/93 98 04/14 1941 85 20 122/67 99 Ventilator 04/14 1751 95.7 77 20 102/63 100 Ventilator 75% 04/14 1724 94 20 108/60 100 Ventilator 100% 04/14 1704 91 70/00 04/14 1650 100 04/14 1645 98 70/00 Intake & Output 04/15 1600 04/15 0800 04/15 0000 04/14 1600 04/14 0800 04/14 0000 Intake Total 1227 270 Output Total 210 150 Balance 1017 120 Intake, IV 1227 270 Output, 200 Gastric Drainage Output, Urine 10 150 Patient 165 lb 165 lb Weight Weight Bed scale Measurement Method Physical Exam: General: Intubated Eyes: No obvious scleral icterus. HEENT: No jugular venous distention or abnormal jugular venous pulsations. Cardiovascular: Normal intensity S1/S2. Regular Respiratory: Decreased air entry at the bases Abdomen: Soft, nontender with no guarding or rebound tenderness. Musculoskeletal: No clubbing or cyanosis noted; no edema Skin: warm Neurologic: Intubated Lymph: No gross lymphadenopathy. Labs/Hany Results: Laboratory Tests 04/15 04/15 04/15 04/15 04/15 0805 0800 0515 0515 0240 Blood Gas pH (7.35 - 7.45 PH) 7.42 pCO2 (35 - 45 TORR) 27 L pO2 (80 - 100 TORR) 208 H HCO3 (21 - 28 MEQ/L) 17 L ABG O2 Sat (Measured) (>96.0 %) 98.0 P-50 (Temp Corrected) N Carboxyhemoglobin (1.5 - 5.0 %) 0.4 L O2 Concentration % 60% Temperature (97.0 - 100.0 FARH) 99.9 Respiration Rate (BPM) 20 O2 Delivery Method VENT Vent Mode VC-AC Expiratory Pressure (CMH2O/P) 5 Tidal Volume (CC) 500 Chemistry Lactic Acid (0.7 - 2.1 mmol/L) 2.8 H 3.7 H 4.7 H Troponin I (<0.11 ng/ml) 1.18 *H Miscellaneous Phlebotomy Draw Site RIGHT RADIAL 04/15 04/14 0240 2205 Chemistry Sodium (137 - 145 mmol/L) 136 L 136 L Potassium (3.5 - 5.1 mmol/L) 5.1 5.1 Chloride (98 - 107 mmol/L) 102 102 Carbon Dioxide (22 - 30 mmol/L) 17 L 20 L Anion Gap (5 - 16) 17 H 14 BUN (9 - 20 mg/dL) 33 H 31 H Creatinine (0.7 - 1.2 mg/dL) 5.6 *H 5.9 *H Estimated GFR (>60 ml/min) 10 L 9 L Glucose (65 - 99 mg/dL) 223 H 215 H Calcium (8.4 - 10.2 mg/dL) 7.8 L 8.3 L Phosphorus (2.5 - 4.5 mg/dL) 5.9 H 6.1 H Magnesium (1.6 - 2.3 mg/dL) 1.5 L 1.7 Total Bilirubin (0.2 - 1.3 mg/dL) 0.5 0.5 AST (17 - 59 U/L) 74 H 86 H ALT (21 - 72 U/L) 45 42 Troponin I (<0.11 ng/ml) 1.11 *H Albumin (3.5 - 5.0 g/dL) 2.3 L 2.3 L Coagulation PT (9.4 - 12.5 SEC) 19.4 H INR (0.90 - 1.17) 1.77 H APTT (25 - 37 SEC) 29 Hematology CBC w Diff MAN DIFF ORDERED MAN DIFF ORDERED WBC (4.8 - 10.8 /CUMM) 20.0 H 23.4 H RBC (4.70 - 6.10 /CUMM) 2.92 L 3.15 L Hgb (14.0 - 18.0 G/DL) 8.0 L 8.4 L Hct (42 - 52 %) 23.9 L 25.9 L MCV (80.0 - 94.0 FL) 81.7 82.3 MCH (27.0 - 31.0 PG) 27.3 26.8 L MCHC (33.0 - 37.0 G/DL) 33.4 32.5 L RDW (11.5 - 14.5 %) 16.3 H 16.4 H Plt Count (130 - 400 /CUMM) 91 L 103 L MPV (7.4 - 10.4 FL) 7.0 L 6.5 L Gran % (42.2 - 75.2 %) 91.9 H 87.9 H Lymphocytes % (20.5 - 51.1 %) 3.9 L 5.0 L Monocytes % (1.7 - 9.3 %) 4.2 6.6 Eosinophils % (0 - 5 %) 0 0.3 Basophils % (0.0 - 2.0 %) 0 0.2 Absolute Granulocytes (1.4 - 6.5 /CUMM) 18.4 H 20.5 H Segmented Neutrophils (42.2 - 75.2 %) 89 H 83 H Band Neutrophils (0.0 - 5.0 %) 4 9 H Absolute Lymphocytes (1.2 - 3.4 /CUMM) 0.8 L 1.2 Lymphocytes (20.5 - 51.1 %) 1 L 3 L Monocytes (1.7 - 9.3 %) 6 4 Absolute Monocytes (0.10 - 0.60 /CUMM) 0.8 H 1.5 H Absolute Eosinophils (0.0 - 0.7 /CUMM) 0 0.1 Absolute Basophils (0.0 - 0.2 /CUMM) 0 0 Metamyelocytes (0.0 - 1.0 %) 1 Nucleated RBCs (0.0 - 0.0 /100WBC) 1 H Platelet Estimate (ADEQUATE) DECREASED DECREASED Polychromasia 1+ 1+ Poikilocytosis 1+ 1+ Anisocytosis 1+ Ovalocytes 1+ Other Body Source Fld Total RBCs Counted (%) 100 04/14 04/14 1715 1645 Blood Gas pH (7.35 - 7.45 PH) 7.18 *L pCO2 (35 - 45 TORR) 35 pO2 (80 - 100 TORR) 381 H HCO3 (21 - 28 MEQ/L) 13 L ABG O2 Sat (Measured) (>96.0 %) 98.0 Carboxyhemoglobin (1.5 - 5.0 %) 0.2 L O2 Concentration % 100% Respiration Rate (BPM) 20 O2 Delivery Method ESPRIT VENT Vent Mode AC Expiratory Pressure (CMH2O/P) 5 Tidal Volume (CC) 500 Chemistry Sodium (137 - 145 mmol/L) 137 Potassium (3.5 - 5.1 mmol/L) 4.4 Chloride (98 - 107 mmol/L) 103 Carbon Dioxide (22 - 30 mmol/L) 16 L Anion Gap (5 - 16) 18 H BUN (9 - 20 mg/dL) 28 H Creatinine (0.7 - 1.2 mg/dL) 5.9 *H Estimated GFR (>60 ml/min) 9 L BUN/Creatinine Ratio (7 - 25 %) 4.7 L Glucose (65 - 99 mg/dL) 274 H Lactic Acid (0.7 - 2.1 mmol/L) 8.2 H Calcium (8.4 - 10.2 mg/dL) 10.1 Total Bilirubin (0.2 - 1.3 mg/dL) 0.4 AST (17 - 59 U/L) 69 H ALT (21 - 72 U/L) 43 Alkaline Phosphatase (< 127 U/L) 147 H Troponin I (<0.11 ng/ml) 0.71 *H Total Protein (6.3 - 8.2 g/dL) 5.5 L Albumin (3.5 - 5.0 g/dL) 2.6 L Globulin (1.9 - 4.2 gm/dL) 2.9 Albumin/Globulin Ratio (1.1 - 2.2 %) 0.9 L Hematology CBC w Diff NO MAN DIFF REQ WBC (4.8 - 10.8 /CUMM) 15.1 H RBC (4.70 - 6.10 /CUMM) 3.35 L Hgb (14.0 - 18.0 G/DL) 9.2 L Hct (42 - 52 %) 27.8 L MCV (80.0 - 94.0 FL) 83.1 MCH (27.0 - 31.0 PG) 27.4 MCHC (33.0 - 37.0 G/DL) 33.0 RDW (11.5 - 14.5 %) 16.4 H Plt Count (130 - 400 /CUMM) 34 L MPV (7.4 - 10.4 FL) 7.6 Gran % (42.2 - 75.2 %) 50.7 Lymphocytes % (20.5 - 51.1 %) 44.8 Monocytes % (1.7 - 9.3 %) 2.1 Eosinophils % (0 - 5 %) 2.2 Basophils % (0.0 - 2.0 %) 0.2 Absolute Granulocytes (1.4 - 6.5 /CUMM) 7.7 H Absolute Lymphocytes (1.2 - 3.4 /CUMM) 6.8 H Absolute Monocytes (0.10 - 0.60 /CUMM) 0.3 Absolute Eosinophils (0.0 - 0.7 /CUMM) 0.3 Absolute Basophils (0.0 - 0.2 /CUMM) 0 Miscellaneous Phlebotomy Draw Site RIGHT RADIAL Diagnostic Data EKG Results Initial ECG showed a wide-complex rhythm at 97 bpm possibly consistent with accelerated idioventricular rhythm; subsequent ECG shows sinus rhythm with first -degree AV block and nonspecific T-wave abnormality CXR Results IMPRESSION: Mild interstitial pulmonary edema and trace effusions. No overt airspace disease. The tip of the endotracheal tube terminates 2.8 cm above the angella. Other Results CTA No evidence of PE. No evidence of aortic dissection or aneurysm. Bilateral small pleural effusions with large bilateral lower lobe consolidations. In addition there are patchy ill-defined opacities in the right lung question infiltrate versus pulmonary nodules. Suspect infarct the tip of spleen. Differential 9 is includes hemangioma or splenic contusion. No perisplenic or perihepatic hematoma seen. A follow-up ultrasound or CT can be performed Right central catheter, endotracheal tube, nasogastric tube and Simon's catheter are in satisfactory position. Telemetry tracings are personally reviewed and shows sinus rhythm with first- degree AV block Assessment/Plan Assessment/Plan 1. [id number] cardiopulmonary arrest 2. Recent three-vessel CABG 3. Paroxysmal atrial fibrillation on Eliquis 4. Possible bilateral pneumonia 5. End-stage renal disease on dialysis 6. History of diastolic congestive heart failure 7. Hypertension/hyperlipidemia/diabetes mellitus 8. Elevated troponin likely due to CPR Patient is currently intubated and is now off pressors. He does not appear to be in decompensated congestive heart failure. The etiology of his arrest is not clear but the relatively flat nature of his troponin curve status post CPR is unlikely due to acute graft failure. He does have evidence of pneumonia on CT scan with a low-grade fever and elevated white count. He is receiving IV antibiotics. Recommend obtaining an echocardiogram and monitoring on telemetry. Will need to assess his neurologic status status post out of hospital arrest and continue to discuss goals of care. Dialysis schedule per nephrology. Antibiotic regimen per the critical care team. Follow serial troponins until they begin to down trend. Condition is guarded. Time spent in critical care was greater than 30 minutes. I discussed the case extensively with the critical care team. Sarkis Rai MD [facility] Consult Acknowledgment - Thank you for your consult request.
[2018-04-15 12:00] VITALS: BP 138/66
--- NOTE | 2018-04-15 12:17 | Cons- Nephrology ---
See Addendum General Information and HPI Consulting Request Date of Consult: 04/15/18 Requested By: Dao Mccarty MD Reason for Consult: ESRD Source of Information: old records, Dialysis unit and [facility] Exam Limitations: unable to give history History of Present Illness: The patient is an 82-year-old male with a past medical history most significant for end-stage renal disease recently started on hemodialysis, CAD status post CABG on 03/25 at [facility], left pleural effusion status post multiple thoracenteses, diastolic CHF, A. fib on Eliquis, hypertension, diabetes who presents after cardiac arrest. The patient was recently discharged from [facility] where he has essentially been for the last several weeks and underwent a CABG on 03/25. He was readmitted multiple times first for a fall and then confusion. He requires thoracenteses during these admissions for left pleural effusion. There is notation of some anxiety for which she was treated with Xanax related to dialysis. He now comes in after attempting his first outpatient dialysis at the [facility] unit. Within a couple of minutes after getting hooked up to the machine, the patient became acutely short of breath and suffered a cardiac arrest. CPR was initiated, ultimately he received multiple rounds of epinephrine with spontaneous return of circulation. He had been on pressors but these were able to be titrated off. He remains on the ventilator. He reveals of care discussions with the family, he was made DO NOT RESUSCITATE and although he is not following commands, hypothermia protocol was decided to not be initiated in conversations with family. That being said, other intervention such as dialysis are still ongoing. Should note that initial EKG with wide complex rhythem thought to be possibly c/ w accelerated idioventricular rhythem and subsequent EKG with sinus with 1st degree AV block. Trop up to 1.18. CT without evidence of PE but did demonstrate large lower lobe consolidations. Allergies/Medications Allergies: Coded Allergies: No Known Allergies (04/14/18) Home Med List: Alprazolam 0.25 MG TABLET 1 TAB PO TUESTHRSAT PRN ANXIETY (Reported) Amiodarone (Cordarone) 200 MG TAB 1 TAB PO DAILY HEART (Reported) Apixaban (Eliquis) 2.5 MG TABLET 1 TAB PO BID BLOOD THINNER (Reported) Citalopram Hydrobromide (Celexa) 20 MG TABLET 1 TAB PO DAILY MENTAL HEALTH ( Reported) Epoetin Shahab (Procrit) 20,000 UNIT/ML VIAL 0.35 ML IV TUETHRSAT DIALYSIS ( Reported) Finasteride (Proscar) 5 MG TABLET 1 TAB PO DAILY PROSTATE (Reported) Linagliptin (Tradjenta) 5 MG TABLET 1 TAB PO DAILY DM (Reported) Methyl Salicylate/Menthol (Salonpas Patch) (Unknown Strength) ADH..PATCH 1 PATCH TOP Q8H PAIN (Reported) Metoprolol Tartrate 25 MG TABLET 12.5 MG PO BID HEART/BP (Reported) Oxymetazoline HCl (Afrin) 0.05 % SPRAY 2 SPRAY BELLO BID PRN CONGESTION ( Reported) Rosuvastatin Calcium (Crestor) 20 MG TABLET 1 TAB PO QHS CHOLESTEROL ( Reported) Sennosides/Docusate Sodium (Senna S Tablet) 8.6 MG-50 MG TABLET 2 TAB PO QHS CONSTIPATION (Reported) Sodium Chloride (Saline Nasal [place]) 0.65 % SPRAY 1 SPRAY NASB Q6H PRN NASAL CONGESTION (Reported) Tamsulosin HCl (Flomax) 0.4 MG CAP.ER.24H 1 CAP PO QHS (Reported) Current Medications: Current Medications Sig/Blayne Start time Last Medication Dose Route Stop Time Status Admin Acetaminophen 1,000 MG ONCE ONE 04/15 0630 DC 04/15 N/A 1 UNIT IV 04/15 0644 0623 Ampicillin Sodium/ 3,000 MG Q24H 04/14 2200 DC 04/14 Sulbactam Sodium IV 2230 Sodium Chloride 100 ML Ceftazidime 1,000 MG Q24H 04/15 0000 AC 04/15 IV 0025 Epinephrine 1 MG ONCE ONE 04/14 1700 DC 04/14 IV 04/14 1701 1633 Fentanyl Citrate 50 MCG ONCE ONE 04/15 0615 DC 04/15 IV 04/15 0616 0623 Heparin Sodium 5,000 UNIT Q8 04/14 2200 AC (Porcine) SC Levetiracetam 500 MG Q24 04/16 0900 AC N/A 1 UNIT IV Levetiracetam 1,000 MG STAT STA 04/15 1129 DC N/A 1 UNIT IV 04/15 1143 Norepinephrine 4 MG Q3H 04/15 0045 DC 04/15 Dextrose/Water 250 ML IV 0115 Norepinephrine 4 MG Q24H 06/14 2300 DC 04/14 Dextrose/Water 250 ML IV 04/15 0044 2301 Norepinephrine 4 MG .STK-MED ONE 04/14 2134 DC IV 04/14 2135 Norepinephrine 4 MG ONCE ONE 04/14 1700 DC 04/14 Sodium Chloride 250 ML IV 04/14 1701 1645 Norepinephrine 0 .STK-MED ONE 04/14 1643 DC IV Pantoprazole Sodium 40 MG DAILY 04/14 2345 AC 04/15 IV 0843 Sodium Chloride 1,000 ML Q10H 04/15 0115 AC 04/15 IV 0117 Vancomycin HCl 1,000 MG ONCE ONE 04/14 2315 DC 04/15 Sodium Chloride 250 ML IV 04/15 0014 0025 Vasopressin 40 UNITS .STK-MED ONE 04/14 2211 DC IM 04/14 2212 Review of Systems Review of Systems: Unable to obtain as intubated/unresponsive Past History Travel History Traveled to [place] past 21 day No Medical History Blood Transfusion Hx: Yes EENT: NONE Cardiovascular: AFIB, CAD, diastolic CHF, hypertension, hyperlipidemia, PVD, CABG Respiratory: NONE Gastrointestinal: NONE Hepatic: NONE Renal: ESRD on HD Musculoskeletal: NONE Psychiatric: anxiety, depression Endocrine: diabetes Blood Disorders: NONE Cancer(s): NONE SLOT FLOOR PERSON/Reproductive: NONE Surgical History Surgical History: CABG (2 WEEKS AGO AT [facility]) Psychosocial History [facility] You [facility] ([facility] after hospital DC) Services at Home: Nursing, Physical Therapy Primary Language: Maltese Smoking Status: Unknown If Ever Smoked ETOH Use: denies use Illicit Drug Use: denies illicit drug use Living Will? yes (no copies at hand though) Power of Social Media Director/HCP? yes (Eldest daughter per family) Functional Ability ADLs Unknown: dressing, eating, toileting, bathing. Ambulation: unknown IADLs Unknown: shopping, housework, finances, food prep, telephone, transportation, medication admin. Exam & Diagnostic Data Vital Signs and I&O Vital Signs Date Time Temp Pulse Resp B/P B/P Pulse O2 O2 Flow FiO2 Mean Ox Delivery Rate 04/15 1159 40 04/15 1045 Ventilator 40% 04/15 0922 40 04/15 0800 99.9 78 22 102/50 100 Ventilator 60% 04/15 0800 100 Ventilator 60% 04/15 0752 100.0 04/15 0623 100.4 04/15 0600 60 06/15 0556 65 04/15 0400 100 Ventilator 65% 04/15 0324 65 04/15 0320 70 04/15 0115 84 113/56 04/15 0034 70 04/15 0026 75 04/15 0000 100 Ventilator 75% 04/14 2301 85 85/60 04/14 2230 75 04/14 2200 94.2 80 20 86/00 100 Ventilator 75% 04/14 2115 95 Ventilator 75% 04/14 2014 89.8 83 20 128/93 98 04/14 1941 85 20 122/67 99 Ventilator 04/14 1751 95.7 77 20 102/63 100 Ventilator 75% 04/14 1724 94 20 108/60 100 Ventilator 100% 04/14 1704 91 70/00 04/14 1650 100 04/14 1645 98 70/00 Intake & Output 04/15 1600 04/15 0400 04/14 1600 04/14 0400 04/13 1600 04/13 0400 Intake Total 1227 270 Output Total 210 150 Balance 1017 120 Intake, IV 1227 270 Output, 200 Gastric Drainage Output, Urine 10 150 Patient 165 lb 165 lb Weight Weight Bed scale Measurement Method Physical Exam: Gen - ill appearing, unresponsive Head - NCAT Eyes - anicteric sclera, EOMI Neck - supple, no LAD CV - RRR, no m/r/g Chest - clear mechanical breath sounds, no w/r/r Abd - soft, NTND Upper ext - warm, no edema Lower ext - warm, no edema Skin - no rash or jaundice Neuro - unresponsive Results Pertinent Lab Results: Laboratory Tests 04/15 04/15 04/15 04/15 04/15 1120 1120 0805 0800 0515 Blood Gas pH (7.35 - 7.45 PH) 7.42 pCO2 (35 - 45 TORR) 27 L pO2 (80 - 100 TORR) 208 H HCO3 (21 - 28 MEQ/L) 17 L ABG O2 Sat (Measured) (>96.0 %) 98.0 P-50 (Temp Corrected) N Carboxyhemoglobin (1.5 - 5.0 %) 0.4 L O2 Concentration % 60% Temperature (97.0 - 100.0 FARH) 99.9 Respiration Rate (BPM) 20 O2 Delivery Method VENT Vent Mode VC-AC Expiratory Pressure (CMH2O/P) 5 Tidal Volume (CC) 500 Chemistry Lactic Acid (0.7 - 2.1 mmol/L) Pending 2.8 H Troponin I (<0.11 ng/ml) Pending 1.18 *H Miscellaneous Phlebotomy Draw Site RIGHT RADIAL 04/15 04/15 04/15 0515 0240 0240 Chemistry Sodium (137 - 145 mmol/L) 136 L Potassium (3.5 - 5.1 mmol/L) 5.1 Chloride (98 - 107 mmol/L) 102 Carbon Dioxide (22 - 30 mmol/L) 17 L Anion Gap (5 - 16) 17 H BUN (9 - 20 mg/dL) 33 H Creatinine (0.7 - 1.2 mg/dL) 5.6 *H Estimated GFR (>60 ml/min) 10 L Glucose (65 - 99 mg/dL) 223 H Lactic Acid (0.7 - 2.1 mmol/L) 3.7 H 4.7 H Calcium (8.4 - 10.2 mg/dL) 7.8 L Phosphorus (2.5 - 4.5 mg/dL) 5.9 H Magnesium (1.6 - 2.3 mg/dL) 1.5 L Total Bilirubin (0.2 - 1.3 mg/dL) 0.5 AST (17 - 59 U/L) 74 H ALT (21 - 72 U/L) 45 Albumin (3.5 - 5.0 g/dL) 2.3 L Hematology CBC w Diff MAN DIFF ORDERED WBC (4.8 - 10.8 /CUMM) 20.0 H RBC (4.70 - 6.10 /CUMM) 2.92 L Hgb (14.0 - 18.0 G/DL) 8.0 L Hct (42 - 52 %) 23.9 L MCV (80.0 - 94.0 FL) 81.7 MCH (27.0 - 31.0 PG) 27.3 MCHC (33.0 - 37.0 G/DL) 33.4 RDW (11.5 - 14.5 %) 16.3 H Plt Count (130 - 400 /CUMM) 91 L MPV (7.4 - 10.4 FL) 7.0 L Gran % (42.2 - 75.2 %) 91.9 H Lymphocytes % (20.5 - 51.1 %) 3.9 L Monocytes % (1.7 - 9.3 %) 4.2 Eosinophils % (0 - 5 %) 0 Basophils % (0.0 - 2.0 %) 0 Absolute Granulocytes (1.4 - 6.5 /CUMM) 18.4 H Segmented Neutrophils (42.2 - 75.2 %) 89 H Band Neutrophils (0.0 - 5.0 %) 4 Absolute Lymphocytes (1.2 - 3.4 /CUMM) 0.8 L Lymphocytes (20.5 - 51.1 %) 1 L Monocytes (1.7 - 9.3 %) 6 Absolute Monocytes (0.10 - 0.60 /CUMM) 0.8 H Absolute Eosinophils (0.0 - 0.7 /CUMM) 0 Absolute Basophils (0.0 - 0.2 /CUMM) 0 Platelet Estimate (ADEQUATE) DECREASED Polychromasia 1+ Poikilocytosis 1+ Ovalocytes 1+ Other Body Source Fld Total RBCs Counted (%) 100 04/14 04/14 2205 1715 Blood Gas pH (7.35 - 7.45 PH) 7.18 *L pCO2 (35 - 45 TORR) 35 pO2 (80 - 100 TORR) 381 H HCO3 (21 - 28 MEQ/L) 13 L ABG O2 Sat (Measured) (>96.0 %) 98.0 Carboxyhemoglobin (1.5 - 5.0 %) 0.2 L O2 Concentration % 100% Respiration Rate (BPM) 20 O2 Delivery Method ESPRIT VENT Vent Mode AC Expiratory Pressure (CMH2O/P) 5 Tidal Volume (CC) 500 Chemistry Sodium (137 - 145 mmol/L) 136 L Potassium (3.5 - 5.1 mmol/L) 5.1 Chloride (98 - 107 mmol/L) 102 Carbon Dioxide (22 - 30 mmol/L) 20 L Anion Gap (5 - 16) 14 BUN (9 - 20 mg/dL) 31 H Creatinine (0.7 - 1.2 mg/dL) 5.9 *H Estimated GFR (>60 ml/min) 9 L Glucose (65 - 99 mg/dL) 215 H Calcium (8.4 - 10.2 mg/dL) 8.3 L Phosphorus (2.5 - 4.5 mg/dL) 6.1 H Magnesium (1.6 - 2.3 mg/dL) 1.7 Total Bilirubin (0.2 - 1.3 mg/dL) 0.5 AST (17 - 59 U/L) 86 H ALT (21 - 72 U/L) 42 Troponin I (<0.11 ng/ml) 1.11 *H Albumin (3.5 - 5.0 g/dL) 2.3 L Coagulation PT (9.4 - 12.5 SEC) 19.4 H INR (0.90 - 1.17) 1.77 H APTT (25 - 37 SEC) 29 Hematology CBC w Diff MAN DIFF ORDERED WBC (4.8 - 10.8 /CUMM) 23.4 H RBC (4.70 - 6.10 /CUMM) 3.15 L Hgb (14.0 - 18.0 G/DL) 8.4 L Hct (42 - 52 %) 25.9 L MCV (80.0 - 94.0 FL) 82.3 MCH (27.0 - 31.0 PG) 26.8 L MCHC (33.0 - 37.0 G/DL) 32.5 L RDW (11.5 - 14.5 %) 16.4 H Plt Count (130 - 400 /CUMM) 103 L MPV (7.4 - 10.4 FL) 6.5 L Gran % (42.2 - 75.2 %) 87.9 H Lymphocytes % (20.5 - 51.1 %) 5.0 L Monocytes % (1.7 - 9.3 %) 6.6 Eosinophils % (0 - 5 %) 0.3 Basophils % (0.0 - 2.0 %) 0.2 Absolute Granulocytes (1.4 - 6.5 /CUMM) 20.5 H Segmented Neutrophils (42.2 - 75.2 %) 83 H Band Neutrophils (0.0 - 5.0 %) 9 H Absolute Lymphocytes (1.2 - 3.4 /CUMM) 1.2 Lymphocytes (20.5 - 51.1 %) 3 L Monocytes (1.7 - 9.3 %) 4 Absolute Monocytes (0.10 - 0.60 /CUMM) 1.5 H Absolute Eosinophils (0.0 - 0.7 /CUMM) 0.1 Absolute Basophils (0.0 - 0.2 /CUMM) 0 Metamyelocytes (0.0 - 1.0 %) 1 Nucleated RBCs (0.0 - 0.0 /100WBC) 1 H Platelet Estimate (ADEQUATE) DECREASED Polychromasia 1+ Poikilocytosis 1+ Anisocytosis 1+ Miscellaneous Phlebotomy Draw Site RIGHT RADIAL 04/14 1645 Chemistry Sodium (137 - 145 mmol/L) 137 Potassium (3.5 - 5.1 mmol/L) 4.4 Chloride (98 - 107 mmol/L) 103 Carbon Dioxide (22 - 30 mmol/L) 16 L Anion Gap (5 - 16) 18 H BUN (9 - 20 mg/dL) 28 H Creatinine (0.7 - 1.2 mg/dL) 5.9 *H Estimated GFR (>60 ml/min) 9 L BUN/Creatinine Ratio (7 - 25 %) 4.7 L Glucose (65 - 99 mg/dL) 274 H Lactic Acid (0.7 - 2.1 mmol/L) 8.2 H Calcium (8.4 - 10.2 mg/dL) 10.1 Total Bilirubin (0.2 - 1.3 mg/dL) 0.4 AST (17 - 59 U/L) 69 H ALT (21 - 72 U/L) 43 Alkaline Phosphatase (< 127 U/L) 147 H Troponin I (<0.11 ng/ml) 0.71 *H Total Protein (6.3 - 8.2 g/dL) 5.5 L Albumin (3.5 - 5.0 g/dL) 2.6 L Globulin (1.9 - 4.2 gm/dL) 2.9 Albumin/Globulin Ratio (1.1 - 2.2 %) 0.9 L Hematology CBC w Diff NO MAN DIFF REQ WBC (4.8 - 10.8 /CUMM) 15.1 H RBC (4.70 - 6.10 /CUMM) 3.35 L Hgb (14.0 - 18.0 G/DL) 9.2 L Hct (42 - 52 %) 27.8 L MCV (80.0 - 94.0 FL) 83.1 MCH (27.0 - 31.0 PG) 27.4 MCHC (33.0 - 37.0 G/DL) 33.0 RDW (11.5 - 14.5 %) 16.4 H Plt Count (130 - 400 /CUMM) 34 L MPV (7.4 - 10.4 FL) 7.6 Gran % (42.2 - 75.2 %) 50.7 Lymphocytes % (20.5 - 51.1 %) 44.8 Monocytes % (1.7 - 9.3 %) 2.1 Eosinophils % (0 - 5 %) 2.2 Basophils % (0.0 - 2.0 %) 0.2 Absolute Granulocytes (1.4 - 6.5 /CUMM) 7.7 H Absolute Lymphocytes (1.2 - 3.4 /CUMM) 6.8 H Absolute Monocytes (0.10 - 0.60 /CUMM) 0.3 Absolute Eosinophils (0.0 - 0.7 /CUMM) 0.3 Absolute Basophils (0.0 - 0.2 /CUMM) 0 Imaging/Other Studies: CTA No evidence of PE. No evidence of aortic dissection or aneurysm. Bilateral small pleural effusions with large bilateral lower lobe consolidations. In addition there are patchy ill-defined opacities in the right lung question infiltrate versus pulmonary nodules. Suspect infarct the tip of spleen. Differential 9 is includes hemangioma or splenic contusion. No perisplenic or perihepatic hematoma seen. A follow-up ultrasound or CT can be performed Right central catheter, endotracheal tube, nasogastric tube and Simon's catheter are in satisfactory position. Assessment/Plan Assessment/Recommendations Assessment: ESRD - Will plan for HD today as dictated by goals of care. There was a question as to whether or not his catheter had been fractured from CPR given some blood from the RAÚL cath site. Imaging suggests that the catheter itself is OK. Perhaps superficial blood vessel injury from CPR while on anticoagulation. Cardiac arrest - Cause not entirely clear although should add "dialyzer reaction " the differential. Although not present during every treatment, he was having anxiety (?very mild dialyzer reaction) related to dialysis. Given the temporal relationship with starting dialysis, this should at least be considered and will need to dialyze on synthetic dialyzer (Optiflux) going forward. Anemia - Will plan to dose Epogen 3000U TIW. Recommendations: -HD today - minimal fluid removal - Optiflux dialyzer -Tentative plans for dialysis tomorrow as well -Epogen 3000U TIW Please call [phone] with ?'s
--- NOTE | 2018-04-15 14:14 | ECHOCARDIOGRAM REPORT ---
BRIAN KNOX Age: 82 : 1935 Gender: M Exam Date: 04/15/2018 11:02 Exam Location: [facility] Ht (in): 66 Wt (lb): 165 BSA: 1.88 BP: 134 / 66 Ordering Physician: SHANTEL WATSON MD Referring Physician: SHANTEL WATSON MD Technologist: Miguel Angel Burns RDCS Room Number: 114-1 Indications: CHEST TRAUMA Rhythm: Technical Quality: Technically difficult study FINDINGS Left Ventricle Left ventricular cavity size normal. Left ventricular wall thickness at upper limits of normal. Abnormal (paradoxical) septal motion consistent with postoperative state. Left ventricular ejection fraction is estimated at 50-55 %. Right Ventricle Normal right ventricular size and function. Right Atrium Right atrium not well visualized, grossly normal. Left Atrium Mild left atrial dilatation. Mitral Valve Mild thickening/calcification of the anterior mitral valve leaflet. No mitral stenosis. Trace to mild mitral regurgitation. Aortic Valve Aortic valve not well visualized. No aortic stenosis. Tricuspid Valve Tricuspid valve not well visualized, grossly normal. Trace tricuspid regurgitation. Unable to estimate the right ventricular systolic pressure. Pulmonic Valve Pulmonic valve not well visualized. Pericardium No pericardial effusion. Great Vessels Normal size aortic root. CONCLUSIONS Technically difficult study. Left ventricular cavity size normal. Left ventricular wall thickness at upper limits of normal. Abnormal (paradoxical) septal motion consistent with postoperative state. Left ventricular ejection fraction is estimated at 50-55 %. Normal right ventricular size and function. Mild left atrial dilatation. Unable to estimate the right ventricular systolic pressure. No pericardial effusion. Clifton Rai M.D. (Electronically Signed) Final Date: 15 April 2018 14:13 MEASUREMENTS (Male / Female) Normal Values 2D ECHO LV Diastolic Diameter PLAX 4.2 cm 4.2 - 5.9 / 3.9 - 5.3 cm LV Systolic Diameter PLAX 3.4 cm 2.1 - 4.0 cm LV Fractional Shortening PLAX 19.0 % 25 - 46 % LV Ejection Fraction 2D Teich 39.6 % IVS Diastolic Thickness 1.1 cm LVPW Diastolic Thickness 1.1 cm LV Relative Wall Thickness 0.5 RV Internal Dim ED PLAX 2.3 cm 1.9 - 3.8 cm LVOT Diameter 1.8 cm Aortic Root Diameter 3.2 cm LA Systolic Diameter LX 2.2 cm 3.0 - 4.0 / 2.7 - 3.8 cm Ascending Aorta Diameter 2.9 cm DOPPLER AV Peak Velocity 139.0 cm/s AV Peak Gradient 7.7 mmHg AV Mean Velocity 96.8 cm/s AV Mean Gradient 4.0 mmHg AV Velocity Time Integral 26.1 cm LVOT Peak Velocity 86.5 cm/s LVOT Peak Gradient 3.0 mmHg LVOT Mean Velocity 49.7 cm/s LVOT Mean Gradient 1.0 mmHg LVOT Velocity Time Integral 15.8 cm LVOT Stroke Volume 40.2 cm AV Area Cont Eq vti 1.5 cm AV Area Cont Eq pk 1.6 cm Mitral E Point Velocity 96.7 cm/s Mitral A Point Velocity 65.2 cm/s Mitral E to A Ratio 1.5 MV Deceleration Time 190.0 ms PV Peak Velocity 88.2 cm/s PV Peak Gradient 3.1 mmHg PV Mean Velocity 60.6 cm/s PV Mean Gradient 2.0 mmHg PV Velocity Time Integral 15.6 cm LV E' Lateral Velocity 6.8 cm/s Mitral E to LV E' Lateral Ratio 14.2 LV E' Septal Velocity 4.6 cm/s Mitral E to LV E' Septal Ratio 21.2
[2018-04-15 15:00] VITALS: BP 127/61
--- NOTE | 2018-04-15 17:14 | Event Note ---
Event Note Event Note: Goals of care discussion and change of code status: Situation: 04/15/18 @ 1550 hrs: Goals of care discussion was held between family members, including power of erisa attorney for the patient, and attending gasoline service attendant Dr Dao Mccarty. Patient's current clinical condition was thoroughly explained, and options about further plan of care was discussed including continuing treatment, or not prolonging further intubation status. Likely consequences of both the options were explained, including likely if extubation was performed at this point of time. The patient's family members including the power of erisa attorney clearly mentioned that the patient would not have wanted to be continued on ventilatory support given his current clinical status and thus decided to change the level of care to comfort measures only and to extubate the patient. Plan of action: Based on the discussion, the following action points were taken: * Code status changed to comfort measures only (from DNR) * Extubation planned, after morphine to be administered: IV morphine 6 mg push followed by IV morphine drip * Discontinued rest of the medications, and future lab tests * Respiratory therapist informed regarding extubation orders (to be done after starting IV Morphine drip) * Family members, POA updated about the plan and understand and agree to it. 04/15/18 @ 1712 HRS: * Patient extubated. * Monitored for dyspnea and after examining and noting dyspnea, ordered IV Morphine 4 mg STAT. * Inj Ativan 2 mg IV q2hr PRN for agitation ordered. Inj Morphine drip increased to 4 mg/hr due to increasing dyspnea. 1733 hrs. Inj Morphine 4 mg IV STAT ordered for laboured breathing and dyspnea. 1741 hrs. Inj Morphine drip changed to comfort measures/hospice protocol. Scopolamine ordered. 04/15/2018 @ 2019 hrs: Time of declared by me after examining his cardiac, respiratory, neurologic status by me in presence of nursing staff. Family by bedside and converyed the message by me. Attending by me and keysha notified by the nursing staff. I prepared the certificate.
--- NOTE | 2018-04-15 19:22 | Discharge Summary ---
Visit Information Visit Dates Admission Date: 04/14/18 Discharge Date: 04/15/18 Hospital Course Course Attending Physician: Dao Mccarty MD Primary Care Physician: Irvin Arriaga MD Hospital Course: 82-year-old male with past medical history of hypertension, coronary artery disease status post CABG within a month, diastolic CHF, A. fib, peripheral vascular disease, diabetes mellitus, ESRD on hemodialysis, hyperlipidemia, depression, anxiety, subdural hematoma with craniotomy in 1989, and a recent frequent hospitalization at [facility] for bilateral pleural effusion with thoracentesis, splenic laceration after fall managed conservatively, and a metabolic encephalopathic attributed to UTI, who was at [facility] for rehab, underwent a cardiac arrest while starting hemodialysis session today and was brought in an ambulance by the EMS with CPR continuing. He received a total of just above 40 min of CPR per records and received four doses of Epinephrine then. Patient was admitted in ICU, was given IV fluids, ventilatory support, pressures. He responded but he started decerebrating and course was complicated by seizure. We updated the family and later they decided for comfort care. Allergies: Coded Allergies: No Known Allergies (04/14/18) Disposition Summary Disposition Principal Diagnosis: Acute hypoxic encephalopathy secondary to cardiopulmonary resuscitation, hypotension complicated by focal seizures Additional Diagnosis: Status post bypass complicated by CPR Chronic kidney disease on dialysis Discharge Disposition: n/a, patient Discharge Instructions General Discharge Information Code Status: Comfort Care Only Patient's Diet: n/a Patient's Activity: n/a Follow-Up Instructions/Appts: n/a Copies To: Buddy ANAND,Steve Aguilera; Fredi ANAND,Clifton Pinedo MD Review Statement Documenting Attending: Dao Mccarty MD
--- NOTE | 2018-04-15 21:26 | ELECTROENCEPHALOGRAM REPORT ---
Electroencephalogram Report Electroencephalogram Results Date of service: 04/15/18 Attending MD: Dao Mccarty MD Patrol Mother: Patricia EEG Number: [id number] Test Utilizes: 10-20 system, 21 lead 18 channel digital recording Pertinent Hx/Physical/Neuro Findings/Clin Diagnosis: S/p cardiac arrest with anoxic brain injury. Inpatient Medications: Current Medications Sig/Blayne Start time Last Medication Dose Route Stop Time Status Admin Acetaminophen 500 MG Q6-PRN PRN 04/15 1430 DC 04/15 IV 1421 Acetaminophen 1,000 MG ONCE ONE 04/15 0630 DC 04/15 N/A 1 UNIT IV 04/15 0644 0623 Ampicillin Sodium/ 3,000 MG Q24H 04/14 2200 DC 04/14 Sulbactam Sodium IV 2230 Sodium Chloride 100 ML Ceftazidime 1,000 MG Q24H 04/15 0000 DC 04/15 IV 0025 Fentanyl Citrate 50 MCG ONCE ONE 04/15 0615 DC 04/15 IV 04/15 0616 0623 Glycopyrrolate 200 MCG Q2 PRN 04/15 1815 AC 04/15 IV 1827 Heparin Sodium 5,000 UNIT Q8 04/14 2200 DC (Porcine) SC Levetiracetam 500 MG Q24 04/16 0900 CAN N/A 1 UNIT IV Levetiracetam 1,000 MG STAT STA 04/15 1129 DC 04/15 N/A 1 UNIT IV 04/15 1143 1211 Lorazepam 2 MG Q2 HRS NEEDED PRN 04/15 1730 AC 04/15 IV 1729 Morphine Sulfate See Dose .[Q 20 MIN] PRN 04/15 1915 AC Insts (1) IV Morphine Sulfate 4 MG .[Q 20 MIN] PRN 04/15 1845 DC 04/15 IV 1857 Morphine Sulfate 4 MG .[Q 20 MIN] PRN 04/15 1830 DC 06/15 IV 1838 Morphine Sulfate 4 MG ONCE ONE 04/15 1815 DC / IV 04/15 1816 1815 Morphine Sulfate 4 MG ONCE ONE 04/15 1745 DC / IV 04/15 1746 1743 Morphine Sulfate 4 MG ONCE ONE 04/15 1730 DC 06/ IV 04/15 1731 1723 Morphine Sulfate 100 MG Q24H 04/15 1630 CAN N/A 1 UNIT IV Morphine Sulfate 90 MG Q24H 04/15 1630 AC 04/15 N/A 1 UNIT IV 1735 Morphine Sulfate 6 MG ONCE ONE 04/15 1600 DC /15 IV 04/15 1601 1608 Morphine Sulfate 100 MG Q24H 04/15 1600 DC Dextrose/Water 100 ML IV Norepinephrine 4 MG Q3H 04/15 0045 DC 04/15 Dextrose/Water 250 ML IV 0115 Norepinephrine 4 MG Q24H 04/14 2300 DC 04/14 Dextrose/Water 250 ML IV 04/15 0044 2301 Norepinephrine 4 MG .STK-MED ONE 04/14 2134 DC IV 04/14 2135 Pantoprazole Sodium 40 MG DAILY 04/14 2345 DC 04/15 IV 0843 Scopolamine HBr 1 PAT Q72H 04/15 1830 AC TOP Sodium Chloride 1,000 ML Q10H 04/15 0115 DC 04/15 IV 1531 Vancomycin HCl 1,000 MG ONCE ONE 04/14 2315 DC 04/15 Sodium Chloride 250 ML IV 04/15 0014 0025 Vasopressin 40 UNITS .STK-MED ONE 04/14 2211 DC IM 04/14 2212 Dose Instructions: (1)Morphine Sulfate: DOSE PER DRIP PROTOCOL Interpretation: There recording demonstrates a loss of the normal frequency gradients. Instead this is replaced by very low amplitude 2-5 microvolt activity in all leads. EKG artifact is apparent and occasional muscle artifact. The background is made up of a mixture of fast beta rhythms with intermixed theta and delta in some leads. No paroxysmal activity is appreciated. Impression: Abnormal recording due to disrupted backgrounds consisting of very low amplitude that is almost flat lined that could be consistent with anoxic brain injury. This study however is not consistnet with brain as activity is appreciated a 2 microvolt sensitivity.
== END 2018-04-15 20:20 | disposition expired | DRG 871 ==
LOC: ERH 16:35 → CRI 17:09 → ERHI 17:09 → ENRESERV 17:52 → CRI 20:54
PROVIDERS: Emergency Medicine; Radiology Vascular & Interventional Radiology; Student in an Organized Health Care Education/Training Program
PROC: 0BH17EZ Insertion of Endotracheal Airway into Trachea, Via Natural or Artificial Opening (ICD-10-PCS; principal; 2018-04-14)
PROC: 5A1945Z Respiratory Ventilation, 24-96 Consecutive Hours (ICD-10-PCS; principal; 2018-04-14)
PROC: 06HM33Z Insertion of Infusion Device into Right Femoral Vein, Percutaneous Approach (ICD-10-PCS; 2018-04-14)
DX: A41.9 Sepsis, unspecified organism (principal); J18.9 Pneumonia, unspecified organism; J96.00 Acute respiratory failure, unspecified whether with hypoxia or hypercapnia; R65.21 Severe sepsis with septic shock; N18.6 End stage renal disease; G93.1 Anoxic brain damage, not elsewhere classified; Z51.5 Encounter for palliative care; I13.2 Hypertensive heart and chronic kidney disease with heart failure and with stage 5 chronic kidney disease, or end stage renal disease; I50.32 Chronic diastolic (congestive) heart failure; I46.9 Cardiac arrest, cause unspecified; Z95.1 Presence of aortocoronary bypass graft; I48.2 Chronic atrial fibrillation; D69.6 Thrombocytopenia, unspecified; E11.22 Type 2 diabetes mellitus with diabetic chronic kidney disease; E11.51 Type 2 diabetes mellitus with diabetic peripheral angiopathy without gangrene; E78.5 Hyperlipidemia, unspecified; Z99.2 Dependence on renal dialysis; F32.9 Major depressive disorder, single episode, unspecified; I25.10 Atherosclerotic heart disease of native coronary artery without angina pectoris; F41.9 Anxiety disorder, unspecified; Z66 Do not resuscitate; I44.0 Atrioventricular block, first degree; Z79.84 Long term (current) use of oral hypoglycemic drugs
CPT/HCPCS: CCU; 36415; 36592; 71045; 74177; 82436; 87040; 87070; 87086; 93005; 93010; 93306; 94799; 96374; 96375; 99291; J0131; J0713; J1644; J1953; J2060; J2270; J3010; J3370; J7040